=== PATIENT | female | born 1955 | race Hispanic/Latino ===

== ENCOUNTER 2023-07-07 13:39 | Emergency (ER) | payer MEDICARE ==
[~2023-07-07] VITALS: Ht 154.9 cm; Wt 68.9 kg
[2023-07-07] VITALS (10 sets, daily range): BP systolic 125–151; BP diastolic 61–122
[2023-07-07 17:55] LABS: BASO% 0.2 % (0-3); EOS% 0.5 % (0-8); HEMATOCRIT 40.8 % (37.0-47.0); HEMOGLOBIN 13.1 g/dl (12.0-16.0); IMMATURE GRANULOCYTES 0.5 % (0.0-5.0); LYMPH% 41.9 % (15-41); MEAN CELL VOLUME 88.7 fL CALC (80.0-100.0); MEAN CORPUSCULAR HGB 28.5 pG CALC (26.0-32.0); MEAN CORPUSCULAR HGB CONC 32.1 g/dL CAL (32.0-36.0); MONO% 6.6 % (2-13); NEUT# 2.12 thou/uL (2.00-7.15); NEUT% 50.3 % (42-76); RED BLOOD COUNT 4.6 mill/uL (4.20-5.60); RED CELL DISTRI WIDTH 13.7 % (11.5-15.5)
[2023-07-07 18:17] LABS: ALBUMIN 4.7 g/dL (3.2-5.0); ALKALINE PHOSPHATASE 101 u/l (38-126); ANION GAP 15 (6-22 (CALC)); BILIRUBIN, TOTAL 0.6 mg/dL (0.02-1.3); BUN 15 mg/dL (8-23); BUN/CREATININE RATIO 20 (12-20 (CALC)); CARBON DIOXIDE 23 mmol/l (22-30); CHLORIDE 107 mmol/l (95-108); CREATININE 0.7 mg/dL (0.5-1.0); GFR FOR AFR.AMER. > 60 ML/MIN (>=60 (CALC)); GFR OTHER RACES > 60 ML/MIN (>=60 (CALC)); POTASSIUM 3.9 mmol/l (3.5-5.1); SGOT/AST 39 u/l (9-36); SODIUM 141 mmol/l (137-146); TOTAL PROTEIN 7.7 g/dL (6.3-8.2)
== END 2023-07-07 20:03 | disposition home or self-care (01) ==
LOC: ED 13:39
PROVIDERS: Nurse Practitioner
DX: R51.9 Headache, unspecified (principal); E07.9 Disorder of thyroid, unspecified

== ENCOUNTER 2024-03-07 06:27 | Emergency (ER) | payer MEDICARE ==
[~2024-03-07] VITALS: Ht 154.9 cm; Wt 67.0 kg
[~2024-03-07 06:27] MED LIST: ALLERGY RE50 MCG/ACT; LEVOTHYROXIN50 MC1 PO; NAPROXEN500 MG PO; VITAMIN D1.25 MG; ZYRTEC10 MG PO
[2024-03-07 06:35] VITALS: BP 173/81
[2024-03-07] MEDS ORDERED: SODIUM CHLORIDE 0.9% 1,000 ML IV ONE (06:50)
[2024-03-07] MEDS ORDERED: METOCLOPRAMIDE HCL 10 MG/2 ML SDV IV ONE (06:50)
[2024-03-07] MEDS ORDERED: KETOROLAC TROMETHAMINE 30 MG/ML SDV IV ONE (06:50)
[2024-03-07] MEDS ORDERED: TORADOL PO (06:54)
[2024-03-07] MEDS ORDERED: REGLAN10 MG PO (06:54)
[2024-03-07 07:27] VITALS: BP 120/61
[2024-03-07 07:30] VITALS: BP 138/66
[2024-03-07 07:45] VITALS: BP 138/67
[2024-03-07 08:00] VITALS: BP 118/63
[2024-03-07] MEDS ORDERED: DEXAMETHASONE SOD. PHOSPHATE 10 MG/ML VIAL IV ONE (08:15)
[2024-03-07 08:26] VITALS: BP 118/63
== END 2024-03-07 08:42 | disposition home or self-care (01) ==
LOC: ED 06:27
DX: R51.9 Headache, unspecified (principal); I10 Essential (primary) hypertension